=== PATIENT | female | born 1960 | race Caucasian/White ===

== ENCOUNTER 2017-07-05 21:10 | Inpatient (IN) | payer OTHER ==
[~2017-07-05] VITALS: Ht 172.7 cm; Wt 114.0 kg
--- NOTE | ~2017-07-05 | CR72 ---
[facility] A Service of [facility] & [facility] RADIOLOGY TEXT RESULTS PATIENT: ABHI VALLECILLO LOCATION: [address] : 60 UNIT #: [id number] AGE: [address]: Lizzy Burton MD SEX: F ORDER DR: [id number] [facility] [address]. [place], [place] [address] [id number] I MR#: [id number] Acc #: [id number] NAME: ABHI VALLECILLO. : 1960 SEX: F STUDY DATE/TIME: 07/07/2017 4:11 UNIT: [facility] ROOM: [facility] STUDY DESCRIPTION: CR Chest Single View Portable Attending Physician: Lizzy Burton M.D. Ordering Physician: Win Akers M.D. Primary Care Physician: La Espino A.P.R.N. MEDICAL IMAGING REPORT This report is preliminary unless electronic signature is present EXAM Portable chest INDICATION Respiratory failure, endotracheal tube removal. FINDINGS Today's portal view of the chest is compared with yesterday's study. The endotracheal tube has been removed. Minimal left base atelectasis is stable. Heart size is normal. Dictated by... Behzad Yang M.D. THIS IS AN ELECTRONICALLY VERIFIED REPORT Behzad Yang M.D. at 07/07/2017 12:12 PM Kwabena TD: 07/07/2017 10:19 JOB #: [id number] MEDICAL IMAGING REPORT Page 1 of 1 COPY
--- NOTE | ~2017-07-05 | A ---
[facility] Nutrition Therapy DATE: 07/06/17 Patient: ABHI VALLECILLO Physician: JILLIAN Address: [address] [place] [address] Room/Bed: [address], Zip: [place] [address] Admit Date: 07/05/17 Date of : 60 Height: 5 8 Weight: 251 114 NUTRITIONAL ASSESSMENT: REASON: NPO IN ICU ASSESSMENT PT IS 57 Y.O. FEMALE ADMITTED FOR ACUTE HYPOXIC RESP FAILURE, PNA PMH: NO RECENT H&P IN [facility]. PER CHART: COPD, ASTHMA Anthropometrics: 5'8", WT: 251# (114 KG), BMI: 38.2 Labs: GLU: 228, ALB: 2.9, ALT: 43, M.9, PHOS: 0.9, A1c: 6.4 (2012) Meds: NACL, PROTONIX, KCL, NOVOLOG, ZOFRAN, SOLU-MEDROL, PROPOFOL, ZOSYN I/O & Bowel function: 1036/150 Skin Integrity: BLE TRACE EDEMA; HANDS TRACE EDEMA; FACE/NECK GENERAL EDEMA Estimated Nutrition Needs: 8761-8444 KCAL (15-20 KCAL/KG BW) 95-125 G PRO (1.5-2.0 G PRO/IBW) FLUIDS CONSISTENT W/KCAL NEEDS OR MANAGE PER MD Assessment: CHART REVIEWED AND EVENTS NOTED. PT SEEN FOR NPO IN ICU. PT ADMITTED FOR ABOVE DX, CURRENTLY INTUBATED AND SEDATED W/PROPOFOL (RATE OF 27.4 ML/HR PROVIDING ~723 KCAL FROM LIPIDS). NO FAMILY IN ROOM AT TIME OF VISIT. PER RN AND CHART, NO PLANS IN PLACE FOR ALTERNATIVE NUTRITION SUPPORT OR EXTUBATION AT THIS TIME. RD TO FOLLOW. SEE RECOMMENDATIONS BELOW. Dx: 1. INADEQUATE ORAL INTAKE R/T CURRENT DIAGNOSIS, VENT DEPENDENCE AEB NPO STATUS. 2. OBESITY CLASS II R/T LIFESTYLE AEB BMI OF 38.2 Intervention: 1. NPO Monitoring, Evaluation and Goals: 1. ENTERAL NUTRITION; INITIATE ENTERAL NUTRITION AND PROVIDE >80% ESTIMATED TOTAL VOLUME X 24 HOURS 2. WEIGHTS; PROMOTE GRADUAL WEIGHT LOSS TOWARDS A HEALTHY BMI 3. LABS; WNL: GLU, LYTES (MG+, PHOS) Recommendations: 1. ONCE MEDICALLY FEASIBLE AND PT EXTUBATED, ADVANCE DIET PER CHILD SUPPORT INVESTIGATOR EVAL + HEALTHY HEART [facility] Nutrition Therapy DATE: 07/06/17 Patient: ABHI Briceno AVEL Physician: JILLIAN Address: [address] [place] [address] Room/Bed: [address], Zip: [place] [address] Admit Date: 07/05/17 Date of : 60 Height: 5 8 Weight: 251 114 DIET + CONSISTENT CARBOHYDRATE 2' ELEVATED BMI 2. IF PT TO REMAIN INTUBATED >24 HOURS, CONSIDER PLACING DHT AND BEGIN ENTERAL NUTRITION SUPPORT OF JEVITY 1.5 @ 20 ML/HR, ADVANCE 10 ML q 6 HOURS TO GOAL RATE OF 40 ML/HR +SEDATION + SUGAR-FREE PROSTAT BID -TOTAL PROVIDES 2363 KCAL, 91 G PRO, 730 ML FREE H20 ADD FREE H20 FLUSHES PER MD 3. ONCE PROPOFOL D/C'D, RECOMMEND ENTERAL NUTRITION SUPPORT OF JEVITY 1.5 @ GOAL RATE OF 60 ML/HR -PROVIDES 2160 KCAL, 92 G PRO, 1094 ML FREE H20 ADD FREE H20 FLUSHES PER MD 4. REPLETE LYTES PRN. (MG+ & PHOS L0W) 5. OPTIMIZE BLOOD SUGAR CONTROL REGIMEN-ELEVATED BLOOD SUGARS NOTED. CONSIDER OBTAINING A1c RD WILL F/U PER PROTOCOL PT IS SEVERELY COMPROMISED Respectfully, ANNETTE BEEBE MS, RD, LD [employer] and Nutrition[facility] Services [facility] cc: client file
--- NOTE | ~2017-07-05 | DS ---
Unit #: [id number] #: [id number] Patient: ABHI GUERRA [id number] [address] [place], [place] [address] [id number] I MR#: [id number] NAME: ABHI GUERRA. ROOM: 55 Age: 57 Sex: F Admission Date: 07/05/2017 : 1960 Discharge Date: 07/08/2017 Attending Physician: Desiree Orr M.D. Primary Care Physician: La Espino A.P.R.N. DISCHARGE SUMMARY PRINCIPAL DIAGNOSES 1. Acute on chronic hypercapnic/hypoxic respiratory failure, returned to her baseline of 2 L of oxygen per nasal cannula continuously. 2. Acute exacerbation of chronic obstructive pulmonary disease. 3. Probable aspiration pneumonia. 4. Diabetes mellitus type 2, noninsulin requiring, with associated steroid-induced hyperglycemia. 5. Hypertension, uncontrolled. 6. Probable obstructive sleep apnea for which patient does not use CPAP. 7. Continued tobacco abuse. 8. Moderate protein malnutrition. 9. Obesity. 10. Seasonal allergies. CONSULTANTS Dr. Akers - Pulmonology. PROCEDURES 1. Two dimensional echocardiogram on July 06, 2017, with ejection fraction of 45-50%. Normal left ventricular wall thickness and grade 1 diastolic dysfunction noted. 2. Bronchoscopy on July 06, 2017, with no findings of endobronchial lesion. Cultures were unremarkable. CLINICAL HISTORY/HOSPITAL COURSE Ms. Guerra is a 57-year-old female with a history of chronic respiratory failure and COPD who presents with significant hypoxia after a few days of shortness of breath. Please refer to H and P for further details. The patient was unable to tolerate BiPAP and ultimately required intubation and was admitted to the ICU. Dr. Akers was consulted. Fortunately, patient had a very short time of intubation and was subsequently extubated on the . She has done well and her oxygen has now been titrated back to her home dose. She had been placed on IV antibiotics and IV steroids, both of which have been tapered. She did have a mild leukocytosis upon presentation that has significantly improved with tapering of steroids. There is no obvious source of pneumonia and she has been transitioned to oral Omnicef which she will complete as an outpatient. Patient has had some hyperglycemia but, again, she is on steroid therapy. I will continue metformin at home and sugars could be monitored on an outpatient basis off of steroids. Patient's other chronic conditions remain stable. She does, I am quite certain, have underlying obstructive sleep apnea for which she is not Unit #: [id number] #: [id number] Patient: ABHI GUERRA compliant with CPAP and this will need to be evaluated on an outpatient basis. I am awaiting evaluation by physical therapy though the patient is able to ambulate. I think she can be discharged home today. DISCHARGE CONDITION Stable. DISCHARGE STATUS Discharge to home. DISCHARGE MEDICATIONS 1. Prednisone 10 mg tablets, four tablets daily for three days, then three tablets for three days, then two tablets for three days, then one tab for three days, then discontinue. 2. Omnicef 300 mg p.o. b.i.d. for four days. 3. Dulera 200/5 mcg, two puffs b.i.d. 4. Metformin 500 mg b.i.d. 5. Claritin 10 mg daily. 6. Lisinopril 10 mg daily. DISCHARGE INSTRUCTIONS Patient was instructed to follow a heart healthy constant carb diet and a low calorie diet. She can increase her activity as tolerated, to continue her oxygen at 2 L per nasal cannula at all times. FOLLOWUP Patient will follow up with La Espino in two weeks. Patient should follow up with Dr. Akers in approximately three weeks. Needs outpatient sleep apnea evaluation. Time spent on discharge today - 34 minutes. Dictated by... Desiree Orr M.D. VIOLETA/jada TD: 07/10/2017 08:27 JOB #: [id number] DISCHARGE SUMMARY Page 1 of 1 X Desiree Orr MD X DISCHARGE SUMMARY
--- NOTE | ~2017-07-05 | CR72 ---
[facility] A Service of [facility] & [facility] RADIOLOGY TEXT RESULTS PATIENT: ABHI VALLECILLO LOCATION: [address] : [birth year] UNIT #: [id number] AGE: [address]: Nj Almaraz MD SEX: F ORDER DR: [id number] [facility] [address]. [place], [place] [address] [id number] I MR#: [id number] Acc #: [id number] NAME: ABHI VALLECILLO. : 1960 SEX: F STUDY DATE/TIME: 07/05/2017 21:52 UNIT: [facility] ROOM: [facility] STUDY DESCRIPTION: CR Chest Single View Portable Attending Physician: Nj Almaraz M.D. Ordering Physician: Cezar Ruelas M.D. Primary Care Physician: La Espino A.P.R.N. MEDICAL IMAGING REPORT This report is preliminary unless electronic signature is present EXAM AP portable chest, 07/05/2017 HISTORY Shortness of breath for 2 days. COMPARISON PA and lateral chest radiograph, 10/20/2015 FINDINGS Ill-defined perihilar infiltrates are demonstrated in the izn-nm-wnehx lung zones. Stable mild cardiac enlargement. No pleural effusion or pneumothorax is seen. IMPRESSION 1. Bilateral perihilar and infrahilar infiltrates are present. Correlate clinically for pneumonia. Interstitial edema not excluded. No pleural effusion. No pneumothorax. Dictated by... Linette Mi M.D. THIS IS AN ELECTRONICALLY VERIFIED REPORT Linette Mi M.D. at 07/06/2017 1:56 PM [facility]/hany TD: 07/06/2017 11:34 JOB #: [id number] MEDICAL IMAGING REPORT Page 1 of 1 COPY
--- NOTE | ~2017-07-05 | EKG ---
PATIENT: ABHI VALLECILLO UNIT #: [id number] Ventricular Rate: 107 BPM Atrial Rate: 107 BPM P-R Interval: 152 ms QRS Duration: 90 ms Q-T Interval: 352 ms QTC Calculation(Bezet): 469 ms P [place]: 80 degrees Calculated R [place]: 64 degrees Calculated T [place]: 68 degrees Diagnosis Line: Sinus tachycardia Diagnosis Line: Right atrial enlargement Diagnosis Line: Borderline ECG Diagnosis Line: No previous ECGs available Diagnosis Line: Confirmed by DON ORTEGA MD ([id number]) on Diagnosis Line: 07/07/2017 4:46:02 PM INTERPRETING MD: SOPHIA
--- NOTE | ~2017-07-05 | HP ---
Unit #: [id number] #: [id number] Patient: ABHI VALLECILLO [id number] [address] [place], [place] [address] [id number] I MR#: [id number] NAME: ABHI VALLECILLO. ROOM: [facility] Age: 57 Sex: F Admission Date: 07/05/2017 : 1960 Attending Physician: Nj Almaraz M.D. Primary Care Physician: La Espino A.P.R.N. HISTORY AND PHYSICAL CHIEF COMPLAINT Shortness of breath. DISCUSSION This is a 57-year-old female with a past medical history of COPD, diabetes, oxygen dependent at home, obesity, tobacco abuse. EMS was called by the family for shortness of breath, which shortness of breath progressively got worse for two days. Son is available at bedside, who said that they called EMS. She was getting short of breath for two days and on arrival in EMS she was found to be oxygen 83% on 6 L. She was brought to the emergency room and workup initially ABG shows CO2 111. She was placed on BiPAP. She did not tolerate BiPAP, eventually she intubated. She is currently on the vent. Most of the information is obtain after talking to son who is available at the bedside. PAST MEDICAL HISTORY 1. Coronary of COPD, oxygen dependent. 2. Diabetes. 3. Tobacco abuse. 4. Obesity. PAST SURGICAL HISTORY 1. History of biliary repair. 2. Hysterectomy. 3. Right knee surgery. ALLERGIES No known drug allergy. HOME MEDICATIONS Unavailable at this time. SOCIAL HISTORY She smokes one pack day. No history of alcohol abuse or illicit drug use. FAMILY HISTORY Hypertension in the family and mother and sister has a history of lung cancer. REVIEW OF SYSTEMS Unobtainable from patient, she is on the vent. PHYSICAL EXAMINATION GENERAL: A middle-aged female currently on the vent. Unit #: [id number] #: [id number] Patient: ABHI VALLECILLO VITAL SIGNS: Current vitals are following: Heart rate 112, respiratory rate 30, blood pressure 156/79. HEENT: Pupils are equal, react to light and accommodation. Head is normocephalic, atraumatic. NECK: Supple. No JVD. HEART: S1, S2, regular rate and rhythm. LUNGS: Bilateral expiratory and inspiratory wheeze positive. ABDOMEN: Obese, soft, nontender, nondistended. EXTREMITIES: To inspection normal. No cyanosis, no clubbing, no edema. NEUROLOGIC: Unable to do neuro exam as patient is currently on the vent. DIAGNOSTIC STUDIES LABORATORY STUDIES: BNP is 210. White count 19, hemoglobin is 13, hematocrit 42, platelet is 321. INR is 1.1. Sodium 138, potassium 3.5, chloride 89, CO2 41, glucose 149, BUN 11, creatinine 0.9. LFT within normal limits. Lactic acid 0.7. ABG - pH 7.23, CO2 111, O2 99.4. IMAGING STUDIES: Chest x-ray shows hilar infiltrate. ASSESSMENT AND PLAN 1. Hypoxic/hypercapnic respiratory failure, currently she is on the vent. Ask Dr. Akers for vent management. 2. Pneumonia with perihilar infiltrate, status on IV Zosyn and vancomycin. 3. Acute exacerbation of COPD, oxygen dependent at home. Start on DuoNeb, IV Solu-Medrol. 4. Diabetes. She takes metformin at home. Will place on sliding scale. 5. Obesity. 6. Tobacco abuse. 7. DVT and GI prophylaxis. Will place the patient on Lovenox and Protonix. Dictated by [place] Gutierrez/harris TD: 07/06/2017 16:07 JOB #: [id number] HISTORY AND PHYSICAL Page 1 of 1 X X HISTORY AND PHYSICAL
--- NOTE | ~2017-07-05 | CT57 ---
[facility] A Service of [facility] & [facility] RADIOLOGY TEXT RESULTS PATIENT: ABHI VALLECILLO LOCATION: [facility] 556-01 : [birth year] UNIT #: [id number] AGE: [address]: Desiree Orr MD SEX: F ORDER DR: [id number] [facility] [address] [facility]. [place], [place] [address] [id number] I MR#: [id number] Acc #: [id number] NAME: ABHI VALLECILLO. : 1960 SEX: F STUDY DATE/TIME: 07/07/2017 10:41 UNIT: [facility] ROOM: [facility] STUDY DESCRIPTION: CT Chest Wo Cont Attending Physician: Desiree Orr M.D. Ordering Physician: Win Akers M.D. Primary Care Physician: La Espino A.P.R.N. MEDICAL IMAGING REPORT This report is preliminary unless electronic signature is present EXAM CT chest without contrast, 07/07/2017 1041 hours HISTORY 57-year-old with shortness of air for 3 days, history of COPD. Admitted on 07/05/2017 with diagnosis of acute hypoxic pneumonia, respiratory failure requiring intubation. COMPARISON CT angiogram chest 08/25/2015 and recent chest x-rays 07/05 through 07/07/2017 TECHNIQUE Helical noncontrasted images were obtained from the thoracic inlet through the adrenal glands. Sagittal and coronal reconstructions were performed. Total exam DLP 863 mGy-cm. This CT exam was performed with one or more of the following radiation dose reduction techniques: Automatic exposure control, adjustment of mA and/or kV according to patient size, and iterative reconstruction. FINDINGS Images through the thoracic inlet demonstrate no thyroid lesion or adenopathy. Images through the chest demonstrate mildly enlarged pulmonary arteries, slightly decreased from 08/25/2015. Main pulmonary artery is 3.1 cm, previously 3.4 cm. There is mild ectasia of the ascending aorta measuring only 3.3 cm. There are benign calcified nodes, with no pathologic adenopathy seen. There is no pericardial or pleural fluid. The lungs demonstrate linear densities in the lingula and the right lung STS. [facility] A Service of [facility] & [facility] RADIOLOGY TEXT RESULTS PATIENT: ABHI VALLECILLO LOCATION: [facility] 556-01 : [birth year] UNIT #: [id number] AGE: [address]: Desiree Orr MD SEX: F ORDER DR: base consistent with atelectasis or scar. There is no evidence of pneumonia, edema or effusion. There is a prominent fat pad along the left heart border accounting for density on the plain films at the left base. The left lower lobe is clear. Limited views through the upper abdomen demonstrate fatty change in the liver. This is stable. IMPRESSION No acute cardiopulmonary findings. There is minimal linear scarring in the right lung base. There is a prominent fat pad along the left heart border, similar to 08/25/2015. This accounts for the density seen lateral to the left heart on recent chest films. There is no evidence of residual pneumonia, edema or effusion. Dictated by... Cynthia Hutchinson M.D. THIS IS AN ELECTRONICALLY VERIFIED REPORT Cynthia Hutchinson M.D. at 07/09/2017 9:11 AM LIV/hany TD: 07/09/2017 00:04 JOB #: [id number] MEDICAL IMAGING REPORT Page 1 of 1 COPY
--- NOTE | ~2017-07-05 | CR72 ---
[facility] A Service of [facility] & [facility] RADIOLOGY TEXT RESULTS PATIENT: ABHI VALLECILLO LOCATION: [facility] : 60 UNIT #: [id number] AGE: [address]: Nj Almaraz MD SEX: F ORDER DR: [id number] [facility] [address] [facility]. [place], [place] [address] [id number] I MR#: [id number] Acc #: [id number] NAME: ABHI VALLECILLO. : 1960 SEX: F STUDY DATE/TIME: 07/05/2017 22:39 UNIT: [facility] ROOM: [facility] STUDY DESCRIPTION: CR Chest Single View Portable Attending Physician: Nj Almaraz M.D. Ordering Physician: Cezar Ruelas M.D. Primary Care Physician: La Espino A.P.R.N. MEDICAL IMAGING REPORT This report is preliminary unless electronic signature is present EXAM Chest x-ray, 07/05/2017, (2239 hours). HISTORY 57-year-old female in the ED with acute respiratory failure. Endotracheal tube placement. TECHNIQUE AP portable chest x-ray. FINDINGS Newly placed endotracheal tube tip is in good position in mid thoracic trachea about 3.3 cm above the cathleen. Symmetric lung expansion. Lungs grossly clear. No visible pneumothorax or pleural effusion. Heart size normal. IMPRESSION Newly placed ETT in good position. Dictated by... Tab Villagran M.D. THIS IS AN ELECTRONICALLY VERIFIED REPORT Tab Villagran M.D. at 07/06/2017 3:53 PM RGW/carolynw TD: 07/06/2017 11:40 JOB #: [id number] MEDICAL IMAGING REPORT [facility] A Service of [facility] & [facility] RADIOLOGY TEXT RESULTS PATIENT: ABHI VALLECILLO LOCATION: [address] : [birth year] UNIT #: [id number] AGE: [address]: Nj Almaraz MD SEX: F ORDER DR: Page 1 of 1 COPY
--- NOTE | ~2017-07-05 | CR72 ---
[facility] A Service of [facility] & [facility] RADIOLOGY TEXT RESULTS PATIENT: ABHI VALLECILLO LOCATION: [address] : 60 UNIT #: [id number] AGE: [address]: Nj Almaraz MD SEX: F ORDER DR: [id number] [facility] [address] [facility]. [place], [place] [address] [id number] I MR#: [id number] Acc #: [id number] NAME: ABHI VALLECILLO. : 1960 SEX: F STUDY DATE/TIME: 07/06/2017 4:45 UNIT: [facility] ROOM: [facility] STUDY DESCRIPTION: CR Chest Single View Portable Attending Physician: Nj Almaraz M.D. Ordering Physician: Physician Non-Staff Primary Care Physician: La Espino A.P.R.N. MEDICAL IMAGING REPORT This report is preliminary unless electronic signature is present EXAM Chest x-ray, 07/06/2017. HISTORY Respiratory failure. Patient on ventilator. Follow up cardiopulmonary status. TECHNIQUE AP portable chest x-ray. FINDINGS Endotracheal tube remains in good position. Heart size is normal. Shallow lung expansion with mildly prominent vascular markings in the central portions of each lung. No airspace consolidation, pneumothorax or pleural effusion. No change since yesterday. IMPRESSION Stable portable chest radiograph, unchanged since yesterday. ETT in good position. Dictated by... Tab Villagran M.D. THIS IS AN ELECTRONICALLY VERIFIED REPORT Tab Villagran M.D. at 07/06/2017 3:54 PM RGW/perez TD: 07/06/2017 12:53 JOB #: [id number] MEDICAL IMAGING REPORT Page 1 of 1 COPY
--- NOTE | ~2017-07-05 | OR ---
Unit #: [id number] #: [id number] Patient: ABHI VALLECILLO [id number] [address] [address] [id number] I MR#: [id number] NAME: ABHI VALLECILLO. ROOM: 55 Date of Procedure: 07/06/2017 Admission Date: 07/05/2017 Surgeon: Win Akers M.D. : 1960 Attending Physician: Desiree Orr M.D. Primary Care Physician: La Espino A.P.R.N. PROCEDURE OPERATIVE NOTE PREOPERATIVE DIAGNOSIS Pneumonia. POSTOPERATIVE DIAGNOSIS Pneumonia. PROCEDURE PERFORMED Diagnostic bronchoscopy. PROCEDURE After taking consent from the patient after explaining the risks and benefits, the patient was placed in the appropriate position. The bronchoscope was introduced through the endotracheal tube, which was sitting well above the cathleen. We examined the right upper, right middle and right lower lobes, left upper lobe lingula and left lower lobe. No endobronchial lesion as found. There were thick mucoid secretions in both lungs, which were therapeutically suctioned. Then we did bronchoalveolar lavage in the right lower lobe area with 60 ml in and 20 ml back. The patient tolerated the procedure very well. No complications happened. Dictated by... [place] Araiza TD: 07/12/2017 12:25 JOB #: [id number] PROCEDURE OPERATIVE NOTE Page 1 of 1 X Win Akers MD PROCEDURE OPERATIVE NOTE
--- NOTE | ~2017-07-05 | CO ---
Unit #: [id number] #: [id number] Patient: ABHI VALLECILLO [id number] [address] [place], [place] [address] [id number] I MR#: [id number] NAME: ABHI VALLECILLO. ROOM: [facility] Age: 57 Sex: F Admission Date: 07/05/2017 : 1960 Attending Physician: Nj Almaraz M.D. Primary Care Physician: La Espino A.P.R.N. CONSULTATION REPORT REASON FOR CONSULTATION Critical care management and respiratory failure. CHIEF COMPLAINT Shortness of breath for 2 days. HISTORY OF PRESENT ILLNESS This patient basically is a 57-year-old female. She has a history of COPD, tobacco abuse. Presents to the emergency room with a complaint of worsening shortness of breath for the last 2-3 days. Symptoms were getting worse. She was found to be hypoxic in the emergency room, was intubated. I am seeing the patient at bedside. Currently intubated, sedated, on the ventilator. REVIEW OF SYSTEMS Unobtainable. PAST MEDICAL HISTORY Significant for COPD, history of bacteremia. SURGICAL HISTORY Bladder repair, hysterectomy, right knee surgery. SOCIAL HISTORY Ydl-kvwu-ast-day smoker. No alcohol or drug abuse. FAMILY HISTORY None, as per records. ALLERGIES No known drug allergies. CURRENT MEDICATIONS Have been reviewed. DIAGNOSTIC STUDIES LABS: Blood gas - pH of 7.512, pCO2 47, pO2 103. Creatinine is 1, bicarb 34. INR is 1.1. White count is 16, hemoglobin 12, hematocrit 38, platelet count 285. ASSESSMENT 1. Acute hypoxic, hypercapnic respiratory failure. 2. Acute exacerbation of COPD. Unit #: [id number] #: [id number] Patient: ABHI VALLECILLO 3. Right lower lobe pneumonia. 4. Diabetes mellitus. 5. Hypertension. PLAN Continue ventilator support. Continue oxygen, bronchodilator. GI and DVT prophylaxis. Broad-spectrum IV antibiotics, including vancomycin, Zosyn. The patient is on IV steroids. Control sugar. Will get a noncontrast CT of the chest. Consider bronchoscopy. Please see orders for detailed plan. I would like to thank you for your kind consideration to involve me in taking care of this patient. Dictated by... [place] Araiza TD: 07/06/2017 15:11 JOB #: [id number] CONSULTATION REPORT Page 1 of 1 X Win Akers MD CONSULTATION REPORT
[~2017-07-05 21:10] MED LIST: ACETAMINOPHEN325 MG PO; ALBUTEROL17 GM INH; BACTRIM DS TABL1 TA1 PO; CLARITIN10 M2 PO; COMBIVENT RESPIM4 GM IH; GLUCOPHAGE500 MG PO; LEVAQUIN750 MG PO; NICOTINE TRANSD21 MG EXT; NO MEDICATIONS; PERCOCET PO; PHENERGAN W/CO120 ML PO; PREDNISONE PO; SYMBICORT INH; VOLTAREN75 MG PO; ZITHROMAX PO
[2017-07-05 21:35] LABS: ARTERIAL BLD GAS O2 SATURATION 95.8 % (90.0-100.0); ARTERIAL BLOOD GAS CARBOXY HB 1.9 %sat (0.0-9.0); ARTERIAL BLOOD GAS HCO3 47.2 mmol/L; ARTERIAL BLOOD GAS PO2 99.4 mmHg (80.0-100); ARTERIAL BLOOD GAS pH 7.237 (7.350-7.450)
[2017-07-05 21:37] LABS: ARTERIAL BLOOD GAS ALLEN TEST NORMAL; ARTERIAL BLOOD GAS ART SITE LEFT RADIAL; ARTERIAL BLOOD GAS DELIVERY NASAL CANNULA; ARTERIAL DRAW? YES
[2017-07-05 22:11] LABS: BASOPHIL# 0.1 X10e3 (0-0.3); BASOPHIL% 0.7 % (0-2.5); EOSINOPHIL# 0.1 X10e3 (0-0.7); EOSINOPHIL% 0.4 % (0.0-7.0); HEMATOCRIT 42.4 % (35.0-45.0); HEMOGLOBIN 13.7 gm/dL (12.0-16.0); LYMPHOCYTE# 2.1 X10e3 (1.0-3.5); LYMPHOCYTE% 10.4 % (17.0-45.0); MEAN CELL VOLUME 82.8 FL (83-96); MEAN CORPUSCULAR HEMOGLOBIN 26.7 PG (28-34); MEAN CORPUSCULAR HGB CONC 32.2 g/dL (30-36); MEAN PLATELET VOLUME 8.2 FL (6.5-11.5); MONOCYTE# 1.1 X10e3 (0-1.0); MONOCYTE% 5.6 % (3.0-12.0); NEUTROPHIL# 16.5 X10e3 (1.5-7.1); NEUTROPHIL% 82.9 % (40-75); PLATELET COUNT 321 X10e3 (140-420); RED BLOOD COUNT 5.12 X10e (3.90-5.30); RED CELL DISTRIBUTION WIDTH 16.3 % (11.0-15.5); WHITE BLOOD COUNT 19.9 X10e3 (4.0-10.5)
[2017-07-05 22:14] LABS: DIFF IND YES
[2017-07-05 22:23] LABS: ALBUMIN SERUM 3.7 g/dL (3.5-5.0); BILIRUBIN, DIRECT 0.3 mg/dL (0.0-0.2); BILIRUBIN,INDIRECT 0.5 mg/dL (0.0-0.9); BILIRUBIN,TOTAL 0.8 mg/dL (0.2-2.0); BUN/CREATININE RATIO 12.22; CALCIUM SERUM 8.9 mg/dL (8.4-10.2); CREATININE SERUM 0.9 mg/dL (0.6-1.4); INR 1.1; PARTIAL THROMBOPLASTIN TIME 31.8 SECONDS (23.5-31.3); POTASSIUM 3.5 mmol/L (3.5-5.1); PROTEIN TOTAL SERUM 8.3 g/dL (6.0-8.3); PROTHROMBIN TIME (PATIENT) 12.1 SECONDS (10.0-11.7)
[2017-07-05 22:42] LABS: PLATELET ESTIMATE NORMAL (NORMAL)
[2017-07-05 22:47] LABS: ANISOCYTOSIS SL; HYPOCHROMIA SL; MICROCYTOSIS MOD
[2017-07-05 23:41] LABS: POC - CKMB 3.8 ng/mL (0.0-7.9); POC - TROPONIN <0.05 ng/mL (<=0.05)
[2017-07-05 23:43] LABS: ARTERIAL BLD GAS O2 SATURATION 95.2 % (90.0-100.0); ARTERIAL BLOOD GAS HCO3 41.3 mmol/L; ARTERIAL BLOOD GAS MET HB 0.6 %sat (0.0-2.0); ARTERIAL BLOOD GAS PO2 97.2 mmHg (80.0-100); ARTERIAL BLOOD GAS pH 7.311 (7.350-7.450)
[2017-07-05 23:45] LABS: ARTERIAL BLOOD GAS ALLEN TEST NORMAL; ARTERIAL BLOOD GAS ART SITE RIGHT RADIAL; ARTERIAL BLOOD GAS DELIVERY VENT; ARTERIAL BLOOD GAS VENT MODE AC; ARTERIAL DRAW? YES
[2017-07-06 01:03] LABS: POC - CKMB 3.1 ng/mL (0.0-7.9); POC - TROPONIN <0.05 ng/mL (<=0.05)
[2017-07-06 04:04] LABS: ARTERIAL BLD GAS O2 SATURATION 97.8 % (90.0-100.0); ARTERIAL BLOOD GAS CARBOXY HB 1.4 %sat (0.0-9.0); ARTERIAL BLOOD GAS HCO3 37.7 mmol/L; ARTERIAL BLOOD GAS MET HB 0.3 %sat (0.0-2.0); ARTERIAL BLOOD GAS pH 7.512 (7.350-7.450)
[2017-07-06 04:05] LABS: ARTERIAL BLOOD GAS ART SITE LEFT BRACHIAL; ARTERIAL BLOOD GAS DELIVERY VENT; ARTERIAL BLOOD GAS VENT MODE AC; ARTERIAL DRAW? YES
[2017-07-06 05:35] LABS: BASOPHIL% 0.3 % (0-2.5); EOSINOPHIL% 0.1 % (0.0-7.0); HEMATOCRIT 38.1 % (35.0-45.0); HEMOGLOBIN 12.2 gm/dL (12.0-16.0); LYMPHOCYTE# 0.8 X10e3 (1.0-3.5); LYMPHOCYTE% 4.8 % (17.0-45.0); MEAN CELL VOLUME 82.3 FL (83-96); MEAN CORPUSCULAR HEMOGLOBIN 26.4 PG (28-34); MEAN PLATELET VOLUME 8.5 FL (6.5-11.5); MONOCYTE# 0.2 X10e3 (0-1.0); MONOCYTE% 1.2 % (3.0-12.0); NEUTROPHIL# 15.7 X10e3 (1.5-7.1); NEUTROPHIL% 93.6 % (40-75); PLATELET COUNT 285 X10e3 (140-420); RED BLOOD COUNT 4.63 X10e (3.90-5.30); RED CELL DISTRIBUTION WIDTH 16.3 % (11.0-15.5); WHITE BLOOD COUNT 16.7 X10e3 (4.0-10.5)
[2017-07-06 05:39] LABS: DIFF IND NO
[2017-07-06 07:04] LABS: ALBUMIN SERUM 2.9 g/dL (3.5-5.0); BILIRUBIN,TOTAL 0.8 mg/dL (0.2-2.0); CALCIUM SERUM 8.4 mg/dL (8.4-10.2); GLOM FILT RATE Estimated 62.5 mL/min (>60); PROTEIN TOTAL SERUM 6.5 g/dL (6.0-8.3)
[2017-07-06 07:49] LABS: MAGNESIUM 0.9 mg/dL (1.6-3.0)
[2017-07-06 07:52] LABS: PHOSPHOROUS 0.9 mg/dL (2.5-4.6)
[2017-07-06 15:28] LABS: BODY FLUID APPEARANCE BLOODY; BODY FLUID SOURCE BRONCHIAL LAVAGE
[2017-07-06 16:03] LABS: ARTERIAL BLD GAS O2 SATURATION 94.9 % (90.0-100.0); ARTERIAL BLOOD GAS CARBOXY HB 0.9 %sat (0.0-9.0); ARTERIAL BLOOD GAS HCO3 39.1 mmol/L; ARTERIAL BLOOD GAS MET HB 0.7 %sat (0.0-2.0); ARTERIAL BLOOD GAS pH 7.425 (7.350-7.450)
[2017-07-06 16:04] LABS: ARTERIAL BLOOD GAS ART SITE LEFT RADIAL; ARTERIAL BLOOD GAS DELIVERY VENT; ARTERIAL BLOOD GAS PCO2 59.7 mmHg (35.0-45.0); ARTERIAL BLOOD GAS PO2 77.8 mmHg (80.0-100); ARTERIAL BLOOD GAS VENT MODE CPAP; ARTERIAL DRAW? YES
[2017-07-06 18:30] LABS: ARTERIAL BLD GAS O2 SATURATION 94.5 % (90.0-100.0); ARTERIAL BLOOD GAS ALLEN TEST NORMAL; ARTERIAL BLOOD GAS ART SITE LEFT RADIAL; ARTERIAL BLOOD GAS DELIVERY BIPAP 16/4; ARTERIAL BLOOD GAS HCO3 37.8 mmol/L; ARTERIAL BLOOD GAS MET HB 0.8 %sat (0.0-2.0); ARTERIAL BLOOD GAS PO2 78.4 mmHg (80.0-100); ARTERIAL DRAW? YES
[2017-07-07 04:23] LABS: ARTERIAL BLOOD GAS HCO3 37.6 mmol/L
[2017-07-07 04:29] LABS: ARTERIAL BLOOD GAS ALLEN TEST NORMAL; ARTERIAL BLOOD GAS ART SITE RIGHT RADIAL; ARTERIAL BLOOD GAS PCO2 63.7 mmHg (35.0-45.0); ARTERIAL DRAW? YES
[2017-07-07 04:30] LABS: ARTERIAL BLOOD GAS DELIVERY BIPAP 16/4
[2017-07-07 04:39] LABS: HEMATOCRIT 36.2 % (35.0-45.0); HEMOGLOBIN 11.9 gm/dL (12.0-16.0); MEAN CELL VOLUME 81.9 FL (83-96); MEAN CORPUSCULAR HEMOGLOBIN 26.8 PG (28-34); MEAN CORPUSCULAR HGB CONC 32.8 g/dL (30-36); MEAN PLATELET VOLUME 8.4 FL (6.5-11.5); RED BLOOD COUNT 4.42 X10e (3.90-5.30); RED CELL DISTRIBUTION WIDTH 16.6 % (11.0-15.5); WHITE BLOOD COUNT 13.6 X10e3 (4.0-10.5)
[2017-07-07 05:36] LABS: ALBUMIN SERUM 2.7 g/dL (3.5-5.0); BILIRUBIN,TOTAL 0.8 mg/dL (0.2-2.0); CALCIUM SERUM 8.3 mg/dL (8.4-10.2); GLOM FILT RATE Estimated 62.5 mL/min (>60); POTASSIUM 4.3 mmol/L (3.5-5.1); PROTEIN TOTAL SERUM 6.2 g/dL (6.0-8.3)
[2017-07-07] MEDS ORDERED: METFORMIN PO (13:33)
[2017-07-07] MEDS ORDERED: CLARITIN10 M2 PO (13:33)
[2017-07-08 05:23] LABS: HEMATOCRIT 37.6 % (35.0-45.0); MEAN CELL VOLUME 82.8 FL (83-96); MEAN CORPUSCULAR HEMOGLOBIN 26.4 PG (28-34); MEAN CORPUSCULAR HGB CONC 31.9 g/dL (30-36); MEAN PLATELET VOLUME 8.4 FL (6.5-11.5); RED BLOOD COUNT 4.54 X10e (3.90-5.30); RED CELL DISTRIBUTION WIDTH 17.3 % (11.0-15.5); WHITE BLOOD COUNT 13.9 X10e3 (4.0-10.5)
[2017-07-08 06:21] LABS: BUN/CREATININE RATIO 26.36; CALCIUM SERUM 8.8 mg/dL (8.4-10.2); CREATININE SERUM 1.1 mg/dL (0.6-1.4); GLOM FILT RATE Estimated 55.7 mL/min (>60); MAGNESIUM 1.8 mg/dL (1.6-3.0); POTASSIUM 4.3 mmol/L (3.5-5.1)
[2017-07-08] MEDS ORDERED: CEFDINIR300 M1 PO (14:45)
[2017-07-08] MEDS ORDERED: PREDNISONE10 MG PO (14:46)
[2017-07-08] MEDS ORDERED: DULERA 200 MCG/13 GM INH (14:46)
[2017-07-08] MEDS ORDERED: LISINOPRIL10 MG PO (14:47)
[2017-08-07] MEDS ORDERED: SYMBICORT INH (20:35)
[2017-08-07] MEDS ORDERED: ALBUTEROL17 GM INH (20:36)
[2017-08-07] MEDS ORDERED: BREO ELLIPTA I1 EACH INH (20:36)
[2017-08-07] MEDS ORDERED: SERTRALINE HCL50 M1 PO (20:37)
[2017-08-07] MEDS ORDERED: NEURONTIN100 MG PO (20:37)
[2017-08-07] MEDS ORDERED: ZANTAC150 M1 PO (20:39)
[2017-08-13] MEDS ORDERED: OMNICEF300 MG PO (08:05)
[2017-08-13] MEDS ORDERED: PREDNISONE10 M1 (08:06)
== END 2017-07-08 17:05 | disposition home or self-care (01) | DRG 166 ==
LOC: CED 21:10 → CEDOF 23:30 → CED 23:32 → CEDOF 23:32 → CICCU3 23:32 → CEDOF 07-06 00:45 → CICCU3 07-07 06:35 → C5B 07-07 16:26
PROVIDERS: Emergency Medicine; Internal Medicine; Nurse Practitioner
PROC: 5A1935Z Respiratory Ventilation, Less than 24 Consecutive Hours (ICD-10-PCS; principal; 2017-07-05)
PROC: 0BH17EZ Insertion of Endotracheal Airway into Trachea, Via Natural or Artificial Opening (ICD-10-PCS; 2017-07-05)
PROC: 0B9M8ZZ Drainage of Bilateral Lungs, Via Natural or Artificial Opening Endoscopic (ICD-10-PCS; 2017-07-06)
PROC: 0B9F8ZX Drainage of Right Lower Lung Lobe, Via Natural or Artificial Opening Endoscopic, Diagnostic (ICD-10-PCS; 2017-07-06)
PROC: B246YZZ Ultrasonography of Right and Left Heart using Other Contrast (ICD-10-PCS; 2017-07-06)
DX: J96.21 Acute and chronic respiratory failure with hypoxia (principal); J69.0 Pneumonitis due to inhalation of food and vomit; T17.890A Other foreign object in other parts of respiratory tract causing asphyxiation, initial encounter; E44.0 Moderate protein-calorie malnutrition; Z99.81 Dependence on supplemental oxygen; J44.1 Chronic obstructive pulmonary disease with (acute) exacerbation; J96.22 Acute and chronic respiratory failure with hypercapnia; Z90.710 Acquired absence of both cervix and uterus; F17.200 Nicotine dependence, unspecified, uncomplicated; E11.9 Type 2 diabetes mellitus without complications; T38.0X5A Adverse effect of glucocorticoids and synthetic analogues, initial encounter; G47.33 Obstructive sleep apnea (adult) (pediatric); Z68.38 Body mass index [BMI] 38.0-38.9, adult; E66.9 Obesity, unspecified; J30.2 Other seasonal allergic rhinitis; E83.42 Hypomagnesemia; E83.39 Other disorders of phosphorus metabolism
CPT/HCPCS: 31500; 36415; 36600; 71010; 71250; 80048; 80053; 80076; 82553; 82803; 82947; 83605; 83735; 83880; 84100; 84443; 84484; 85025; 85027; 85610; 85730; 87040; 87070; 87102; 87106; 87116; 87205; 87206; 87252; 87254; 87278; 88108; 88305; 88312; 89051; 93005; 93306; 94002; 94003; 94640; 94660; 94760; 94761; 96365; 96375; 97162; 97165; 99291; G8978-GP; G8979-GP; G8980-GP; G8987-GO; G8988-GO; G8989-GO; J0330; J0696; J1650; J1815; J1956; J2250; J2543; J2920; J2930; J3370; J3475